=== PATIENT | female | born 1990 | race Caucasian/White ===

== ENCOUNTER 2023-10-30 09:28 | Emergency (ER) | payer MEDICAID, OTHER ==
[~2023-10-30] VITALS: Ht 167.6 cm; Wt 74.8 kg
[~2023-10-30 09:28] MED LIST: PREN-385 PO
[2023-10-30 09:31] VITALS: BP 150/90; PULSE 101; RESP 15; TEMP 98.6; O2SAT 100
[2023-10-30 10:06] LABS: BASOPHILS % (AUTO) 0.5 % (0.0-2.0); EOSINOPHILS # (AUTO) 0.1 K/uL (0-0.4); EOSINOPHILS % (AUTO) 1.1 % (0.0-4.0); HEMATOCRIT 42.7 % (36-48); HEMOGLOBIN 14.6 g/dL (12.0-16.0); LYMPHOCYTES # (AUTO) 1.6 K/uL (2.5-16.5); LYMPHOCYTES % (AUTO) 32.2 % (20.5-51.1); MEAN CORPUSCULAR HEMOGLOBIN 30 pg (27-31); MEAN CORPUSCULAR HGB CONC 34 g/dL (33-37); MEAN CORPUSCULAR VOLUME 87.9 fL (80-94); MONOCYTES # (AUTO) 0.5 K/uL (0.8-1.0); MONOCYTES % (AUTO) 9.4 % (1.7-9.3); NEUTROPHILS # (AUTO) 2.9 K/uL (1.8-7.7); NEUTROPHILS % (AUTO) 56.8 % (42.2-75.2); PLATELET COUNT (AUTO) 279 K/uL (140-450); RED BLOOD CELL COUNT(AUTO) 4.86 MIL/uL (4.20-5.40); RED CELL DISTRIBUTION WIDTH 12.8 % (11.6-13.7)
[2023-10-30 10:11] LABS: APPEARANCE,URINE CLEAR (CLEAR); BILIRUBIN,URINE NEGATIVE (NEGATIVE); BLOOD, URINE 3+ (NEGATIVE); LEUKOCYTE ESTERASE ,URINE NEGATIVE (NEGATIVE); NITRITE, URINE NEGATIVE (NEGATIVE); PH,URINE 6.5 (5.0-9.0); PROTEIN,URINE NEGATIVE (NEGATIVE); UGLUCOSE NEGATIVE (NEGATIVE); UROBILINOGEN,URINE 0.2 EU/dL (0.2 - 1)
[2023-10-30 10:12] LABS: COLOR,URINE LT. PINK (YELLOW)
[2023-10-30 10:13] LABS: RBC,URINE 0-5 /HPF (0-5)
[2023-10-30 10:14] LABS: BACTERIA,URINE OCCASSIONAL /HPF (None Seen); SQUAMOUS EPITHELIAL CELL,UR 0-3 (FEW) /LPF (0-3 (FEW)); WBC,URINE 80-100 /HPF (0-5)
[2023-10-30 10:26] VITALS: BP 124/70; PULSE 99; RESP 14; TEMP 98.5; O2SAT 99
[2023-10-30] MEDS ORDERED: NITR100C7 PO (11:34)
== END 2023-10-30 11:41 | disposition home or self-care (01) ==
LOC: MED 09:28
DX: O03.9 Complete or unspecified spontaneous abortion without complication (principal); O23.41 Unspecified infection of urinary tract in pregnancy, first trimester; Z3A.01 Less than 8 weeks gestation of pregnancy; Z79.899 Other long term (current) drug therapy
CPT/HCPCS: 36415; 76817; 81001; 84702; 85025; 86900; 86901; 87086; 99284; Q0092